=== PATIENT | female | born 1995 | race Asian ===

== ENCOUNTER 2021-08-20 13:08 | Emergency (ER) | payer OTHER ==
[~2021-08-20] VITALS: Ht 168.9 cm; Wt 54.1 kg
[2021-08-20 13:31] VITALS: BP 125/83
== END 2021-08-20 15:30 | disposition home or self-care (01) ==
LOC: ER 13:09
DX: S93.491A Sprain of other ligament of right ankle, initial encounter (principal); X58.XXXA Exposure to other specified factors, initial encounter; Y93.89 Activity, other specified; Y92.89 Other specified places as the place of occurrence of the external cause; Y99.8 Other external cause status
CPT/HCPCS: 73610; 99283